=== PATIENT | female | born 1980 | race Two or more races ===

== ENCOUNTER 2023-03-21 11:45 | Outpatient (CLI) | payer OTHER | END 2023-03-21 11:49 | disposition home or self-care (01) | LOC: MAMO-SONO 11:45 | PROVIDERS: ATTEND General Practice | DX: N60.11 Diffuse cystic mastopathy of right breast (principal); N60.12 Diffuse cystic mastopathy of left breast; N63 Unspecified lump in breast ==

== ENCOUNTER 2023-04-04 07:48 | Outpatient (CLI) | payer OTHER ==
[2023-04-07] MEDS ORDERED: GRALISE600 MG (07:22)
== END 2023-04-04 15:32 | disposition home or self-care (01) ==
LOC: SONOGRAMA 07:48
PROVIDERS: ATTEND Obstetrics & Gynecology
DX: N93.9 Abnormal uterine and vaginal bleeding, unspecified (principal); R10.2 Pelvic and perineal pain

== ENCOUNTER → 2023-04-07 | Emergency (ER) | payer OTHER ==
[~2023-04-07] VITALS: Ht 160 cm; Wt 80.7 kg
[~2023-04-07] MED LIST: 0.9 % SODIUM CHLORIDE 1,000 ML IV ONE; CIPROFLOXACIN IN 5 % DEXTROSE 400 MG/200 ML PIGGYBAG IV ONE; GRALISE600 MG; KETOROLAC TROMETHAMINE 30 MG VIAL IV STA; METRONIDAZOLE/SODIUM CHLORIDE 500 MG/100 ML PIGGYBACK IV ONE; PROMETHAZINE HCL 25 MG/ML AMPUL IM STA
[2023-04-07 08:22] LABS: HEMATOCRIT 38.2 % (36.0-45.00); MEAN CORPUSCULAR HEMOGLOBIN 28.7 pg (27.00-32.0); MEAN CORPUSCULAR HGB CONC 34.1 g/dl (32.0-36.0); PLATELET COUNT 241 K/uL (150-450); RED BLOOD COUNT 4.54 M/uL (4.00-6.00); RED CELL DISTRIBUTION WIDTH 16.1 % (11.5-14.5)
[2023-04-07 08:53] LABS: ALBUMIN 3.5 gm/dL (3.4-5.0); BILIRUBIN TOTAL 0.28 mg/dL (0.3-1.2); CALCIUM 8.8 mg/dL (8.5-10.1); CREATININE SERUM 0.71 mg/dL (0.55-1.02); GFR 89.43; GLOBULINA 3.2 G/DL (2.4-3.5); POTASSIUM 4.21 mEq/L (3.5-5.1); TOTAL PROTEIN 6.7 gm/dL (6.4-8.2)
[2023-04-07 09:05] LABS: INR 0.98; PROTHROMBIN TIME 10.3 SECONDS (9.0-11.5)
[2023-04-07 09:06] LABS: PARTIAL THROMBOPLASTIN TIME 29.9 SECONDS (22.0-34.0)
[2023-04-07 09:19] LABS: URINE APPEARANCE Cloudy; URINE BILIRRUBIN Negative (NEGATIVE); URINE BLOOD Moderate; URINE COLOR Yellow; URINE GLUCOSE Negative (NEGATIVE); URINE LEUKOCYTE Large; URINE NITRATE Negative; URINE PROTEIN Negative (NEGATIVE); URINE UROBILINOGEN 0.2 E.U./dl
[2023-04-07 09:22] LABS: URINE BACTERIA 8988.7 uL (0.0-1933); URINE RBC 3.1 uL (0.0-20.8)
== END | disposition home or self-care (01) ==
LOC: ER 07:07
PROVIDERS: General Practice
DX: R10.2 Pelvic and perineal pain (principal); D25.9 Leiomyoma of uterus, unspecified; K44.9 Diaphragmatic hernia without obstruction or gangrene

== ENCOUNTER 2024-10-11 12:20 | Emergency (ER) | payer OTHER ==
[~2024-10-11] VITALS: Ht 162.6 cm; Wt 80.3 kg
[~2024-10-11 12:20] MED LIST changes: -0.9 % SODIUM CHLORIDE 1,000 ML IV ONE; -CIPROFLOXACIN IN 5 % DEXTROSE 400 MG/200 ML PIGGYBAG IV ONE; -KETOROLAC TROMETHAMINE 30 MG VIAL IV STA; -METRONIDAZOLE/SODIUM CHLORIDE 500 MG/100 ML PIGGYBACK IV ONE; -PROMETHAZINE HCL 25 MG/ML AMPUL IM STA; +VOLTAREN ARTHRI20 GM TOP
[2024-10-11 12:30] VITALS: BP 140/85; O2SAT 100
[2024-10-11 13:43] LABS: BASO % 0.4 % (0.1-1.2); EOS # 0.14 (0.04-0.54); EOS % 2.7 % (0.7-7.0); LYMPH # 1.22 (1.18-3.74); LYMPH % 23.4 % (19.3-53.1); MEAN PLATELET VOLUME 9.90 fl (9.4-12.4); MONO # 0.36 (0.24-0.82); MONO % 6.9 % (4.7-12.5); NEUT # 3.46 (1.56-6.13); NEUT % 66.2 % (34.0-71.1); RED CELL DISTRIBUTION WIDTH 13.7 % (11.6-14.4)
[2024-10-11 14:12] LABS: ALT/SGPT 22.0 U/L (12-78); AST/SGOT 14.0 U/L (15-37); BILIRUBIN TOTAL 0.44 mg/dL (0.3-1.2); BUN CREA RATIO 17.0 (7.0-25.0); CREATININE SERUM 0.7 mg/dL (0.55-1.02); GFR 90.49; GLOBULINA 3.9 G/DL (2.4-3.5); GLUCOSE FASTING 90.0 mg/dL (65-100); OSMOLALITY SERUM 281.0 MOSM/KG (275-295)
[2024-10-11 15:09] LABS: COVID-19 AG NEGATIVE (NEGATIVE)
[2024-10-11] MEDS ORDERED: ASPIRIN 81 MG TABLET.EC PO ONE (16:15)
== END 2024-10-11 16:37 | disposition home or self-care (01) ==
LOC: ER 12:29
PROVIDERS: Preventive Medicine Public Health & General Preventive Medicine
DX: H53.8 Other visual disturbances (principal); H57.10 Ocular pain, unspecified eye; Z20.822 Contact with and (suspected) exposure to COVID-19